=== PATIENT | male | born 1985 | race African-American/Black ===

== ENCOUNTER 2020-01-21 03:48 | Emergency (ER) | payer OTHER, SELFPAY ==
[2020-01-21 03:50] VITALS: BP 142/80; PULSE 72; RESP 18; TEMP 36.4; O2SAT 99
--- NOTE | 2020-01-21 04:17 | DI.RAD.S_ITS ---
PROCEDURE: XR CHEST 1V INDICATIONS: chest pain TECHNIQUE: One view of the chest was acquired. COMPARISON: None. FINDINGS: Surgical changes and devices: None. Lungs and pleura: Lungs are clear. No pleural effusions or pneumothorax. Mediastinum: Mediastinal contours appear normal. Heart size is normal. Bones and chest wall: No suspicious bony lesions. Overlying soft tissues appear unremarkable. IMPRESSION: Mildly reduced inspiratory volume, source of chest pain is not seen. Dictated by: Hi Gasca M.D. on 01/21/2020 at 8:48 Approved by: Hi Gasca M.D. on 01/21/2020 at 8:48
--- NOTE | 2020-01-21 04:19 | ED.CHESTPAIN ---
HPI - Chest Pain General Chief Complaint: Chest Pain Stated Complaint: phlegm in nasal passage shortness of breath earlie Time Seen by Provider: 01/21/20 04:09 Source: patient Mode of arrival: Ambulatory Limitations: no limitations History of Present Illness HPI narrative: 34-year-old otherwise healthy gentleman presents with 24 hours of left-sided chest pain and overall chest tightness wall taking a deep breath as well as some postnasal drip type symptoms. He describes the pain as pressure and discomfort that is worse with deep breathing and not exacerbated with exercise, it is constant, nonradiating and not associated with dyspnea or nausea. He typically works nights and when he woke up at 9:00 p.m. this evening the overall chest pain that he had been experiencing with deep breathing the day prior was seem to be localizing in the left upper chest and he comes in for further evaluation. He describes no cough and no recent illnesses however he works at [employer] and there was 1 worker who was diagnosed with Covid19 and rapidly isolated for 2 weeks who did return to work 2 days ago. He has no family history for heart disease and no personal history for heart disease. Related Data Allergies Allergy/AdvReac Type Severity Reaction Status Date / Time No Known Drug Allergies Allergy Verified 01/21/20 04:20 Review of Systems Review of Systems Narrative: Denies ? fever ? cough ? cold ? chills ? dyspnea ? orthopnea ? wheezing ? abdominal pain ? change to bowel or bladder habits ? nausea vomiting ? skin changes ? rashes Patient History Medical History (Updated 01/21/20 @ 05:14 by Kira Lake MD) Healthy adult (Acute) Social History Smoking Status: Never smoker Smoking Status: Never smoker alcohol intake frequency: a few times a month Substance Use Type: does not use Exam Narrative Exam Narrative: General: Healthy appearing, in no acute distress. Able to give a complete and coherent history. Well-nourished well-developed HEENT: Moist mucous membranes, normal sclera with reactive pupils, Neck: No JVD, supple Respiratory: Lungs are clear to auscultation, no wheezing no rales no rhonchi. Full and symmetrical air movement Cardiac: Regular rate and rhythm no murmurs no bruits Abdomen: Soft nontender good bowel tones, no flank pain Skin: Warm and dry, no rashes Neurologic: Grossly neurologically intact with no obvious asymmetries or abnormalities Extremities: No trauma, well perfused, no lower extremity edema Psych: Cooperative, appropriate insight and affect Initial Vital Signs Initial Vital Signs: Vital Signs Temperature 97.6 F 01/21/20 03:50 Pulse Rate 72 01/21/20 03:50 Respiratory Rate 18 01/21/20 03:50 Blood Pressure 142/80 H 01/21/20 03:50 Pulse Oximetry 99 01/21/20 03:50 Course Orders Ordered: ED Orders 01/21/20 04:17 XR chest 1V Stat 01/21/20 04:25 Complete Blood Count AUTO DIFF Stat Comprehensive Metabolic Panel Stat Troponin I Stat Discontinued Medications Aspirin (Aspirin Chew) 324 mg PO NOW ONE Stop: 01/21/20 04:18 Last Admin: 01/21/20 04:25 Dose: 324 mg Documented by: ASIF Ketorolac Tromethamine (Toradol) 15 mg IV NOW ONE Stop: 01/21/20 04:18 Last Admin: 01/21/20 04:25 Dose: Not Given Documented by: ASIF Ketorolac Tromethamine (Toradol) 30 mg IM NOW ONE Stop: 01/21/20 04:24 Last Admin: 01/21/20 04:25 Dose: 30 mg Documented by: ASIF Vital Signs Vital signs: Vital Signs - 8 hr 01/21/20 03:50 01/21/20 05:06 Temperature 97.6 F Pulse Rate 72 68 Respiratory Rate 18 18 Blood Pressure 142/80 H Blood Pressure [Left Arm] 140/78 Pulse Oximetry 99 99 MDM - Chest Pain Medical Records Data Attestation: I reviewed the patient's medical records. Lab Data Attestation: I reviewed the patient's lab results. Result diagrams: 01/21/20 04:25 01/21/20 04:25 Labs: Lab Results 01/21/20 01/21/20 Range/Units 04:25 04:25 WBC 5.8 (4.5-11.0) X10^3/uL RBC 5.70 (4.5-5.9) X10^6/uL Hgb 15.4 (13.5-17.5) g/dL Hct 46.9 (41-53) % MCV 82.2 (80-100) fL MCH 27.1 (26-34) PG MCHC 32.9 (30-36) % RDW 13.0 (11.6-14.8) % Plt Count 246 (150-400) X10^3/uL Neut % (Auto) 65.2 (50-75) % Lymph % (Auto) 26.0 (25-40) % [place] % (Auto) 7.2 (3-14) % Eos % (Auto) 1.2 L (2-4) % Baso % (Auto) 0.4 (0-2) % Neut # (Auto) 3800 (0106-0158) /uL Lymph # (Auto) 1500 (1980-8020) /uL [place] # (Auto) 400 (0-900) /uL Eos # (Auto) 100 (0-450) /uL Baso # (Auto) 0 (0-100) /uL Sodium 137 (137-145) mmol/L Potassium 4.5 (3.4-5.1) mmol/L Chloride 99 (98-107) mmol/L Carbon Dioxide 34 H (22-32) mmol/L BUN 13 (9-20) mg/dL Creatinine 1.08 (0.66-1.25) mg/dL Estimated GFR > 60.0 (>60) mL/min BUN/Creatinine Ratio 12.0 (6-22) Glucose 103 H (70-100) mg/dL Calcium 9.6 (8.4-10.2) mg/dL Total Bilirubin 0.6 (0.2-1.3) mg/dL AST 39 (17-59) IU/L ALT 25 (<50) IU/L Alkaline Phosphatase 45 (38-126) U/L Troponin I < 0.012 (0.01-0.034) ng/mL Total Protein 7.8 (6.3-8.2) g/dL Albumin 4.3 (3.5-5.0) g/dL Globulin 3.5 (1.7-4.1) g/dL Albumin/Globulin Ratio 1.2 (1.0-2.8) Imaging Data Chest x-ray: Attestation: I personally reviewed and interpreted this imaging study as follows: My Impression: Normal lung roman without any consolidated findings. No pneumothorax, normal cardiac silhouette ECG Data Attestation: I personally reviewed and interpreted this ECG as follows: Interpretation: Normal sinus rhythm at a rate of 69 Normal axis, normal intervals No acute ST-T changes or ischemia MDM Narrative Medical decision making narrative: No evidence of acute coronary syndrome or consolidated pneumonia. As he has had these symptoms with consistent chest pain for greater than 24 hours a repeat troponin is not required at this time. He is improved after Toradol and I suspect that this is pleurisy. With his recent Covid19 exposure, we have done a test and I have recommended that he self isolated until that test returns. At this point, he is safe for home discharge questions are answered. Discharge Plan Departure Patient Disposition: Home Clinical Impression: Pleurisy Instructions: DI for Pleurisy Activity Restrictions/Additional Instructions: Thank you for coming in today I am not seeing any signs of heart attack or acute pneumonia. I suspect that this is pleurisy and I have given you additional information on what that is. Using 400 mg of ibuprofen (2 puuu-hyj-aoyives pills) and 1 Tylenol every 6 hours can be very helpful in controlling pain. We have sent a Covid19 test. In otherwise healthy people we have been seeing varied presentations. Some have simply minor stomach complaints, some are mild cold and flu symptoms and others are much more severe. Until we have your negative test back I would recommend that you follow CDC guidelines for COVID-19. If you feel that you are getting worse, please return to the ER and I am happy to re-evaluate. I hope you feel better soon CDC Guidelines for home isolation: - Stay away from others - Limit contact with pets and animals: If you must care for a pet, wash your hands before and after interacting with them - Wear a mask if you are sick - Cover your mouth and nose with a tissue when you cough or sneeze. Dispose of tissues in a lined trash can and wash your hands immediately with soap and water for at least 20 seconds. If soap and water are not available, clean hands with alcohol-based hand armament repairer that contains at least 60% alcohol. - Clean your hands often with soap and water for at least 20 seconds - Avoid touching your eyes, nose and mouth with unwashed hands - Do not share dishes, drinking glasses, cups, eating utensils, towels, or bedding with other people in your home. After using these items, wash them thoroughly with soap and water or put in the concrete boom operator. - Clean high-touch surfaces in your isolation area (?sick room? and bathroom) every day; let a caregiver clean and disinfect high-touch surfaces in other areas of the home. Clean the area or item with soap and water or another detergent if it is dirty. Then, use a household disinfectant. Seek medical attention, but call first: - Seek medical care right away if your illness is worsening (for example, if you have difficulty breathing). - Call your doctor before going in: Before going to the doctor?s office or emergency room, call ahead and tell them your symptoms. They will tell you what to do. - If possible, put on a facemask before you enter the building. If you can?t put on a facemask, try to keep a safe distance from other people (at least 6 feet away). This will help protect the people in the office or waiting room. - Follow care instructions from your healthcare provider and local health department: Your local health authorities will give instructions on checking your symptoms and reporting information. Emergency warning signs for COVID-19: - Difficulty breathing or shortness of breath - Persistent pain or pressure in the chest - New confusion or inability to arouse - Bluish lips or face
[2020-01-21] MEDS: KETOROLAC 60 MG/2 ML VIAL 30 MG IM (04:25)
[2020-01-21] MEDS: ASPIRIN 81 MG CHEW TAB 324 MG PO (04:25)
[2020-01-21 04:41] LABS: Add Manual Diff / Slide Review NO; Basophils Absolute Auto 0 /uL (0-100); Basophils Percent Auto 0.4 % (0-2); Eosinophils Absolute Auto 100 /uL (0-450); Eosinophils Percent Auto 1.2 % (2-4); Hematocrit 46.9 % (41-53); Hemoglobin 15.4 g/dL (13.5-17.5); Lymphocytes Absolute Auto 1500 /uL (1100-4500); Mean Corpuscular HGB Conc 32.9 % (30-36); Mean Corpuscular Hemoglobin 27.1 PG (26-34); Mean Corpuscular Volume 82.2 fL (80-100); Monocytes Absolute Auto 400 /uL (0-900); Monocytes Percent Auto 7.2 % (3-14); Neutrophils Absolute Auto 3800 /uL (1500-7000); Neutrophils Percent Auto 65.2 % (50-75); Platelet Count 246 X10^3/uL (150-400); White Blood Cell Count 5.8 X10^3/uL (4.5-11.0)
[2020-01-21 04:49] LABS: Alanine Aminotransferase 25 IU/L (<50); Albumin 4.3 g/dL (3.5-5.0); Albumin Globulin Ratio 1.2 (1.0-2.8); Alkaline Phosphatase 45 U/L (38-126); Aspartate Aminotransferase 39 IU/L (17-59); Bilirubin Total 0.6 mg/dL (0.2-1.3); Blood Urea Nitrogen 13 mg/dL (9-20); Calcium 9.6 mg/dL (8.4-10.2); Carbon Dioxide 34 mmol/L (22-32); Chloride 99 mmol/L (98-107); Estimated Glomerular Filt Rate > 60.0 mL/min (>60); Globulin 3.5 g/dL (1.7-4.1); Glucose 103 mg/dL (70-100); HEMOLYSIS < 15 (0-50); Potassium 4.5 mmol/L (3.4-5.1); Sodium 137 mmol/L (137-145); Total Protein 7.8 g/dL (6.3-8.2)
[2020-01-21 05:01] LABS: Troponin I < 0.012 ng/mL (0.01-0.034)
[2020-01-21 05:06] VITALS: BP 140/78; PULSE 68; RESP 18; O2SAT 99
[2020-01-23 01:23] LABS: COVID19 Sendout Not Detected (Not Detected)
== END 2020-01-21 05:19 | disposition home or self-care (01) ==
PROVIDERS: Emergency Provider Emergency Medicine
DX: R09.1 Pleurisy (principal); R07.9 Chest pain, unspecified
CPT/HCPCS: 36415; 71045; 80053; 84484; 85025; 87635; 96372; 99284; J1885